=== PATIENT | female | born 1930 | race Caucasian/White ===

== ENCOUNTER 2019-10-18 10:23 | Observation (INO) | payer MEDICARE, BC ==
[~2019-10-18] VITALS: Ht 147.3 cm; Wt 56.3 kg
[~2019-10-18 10:23] MED LIST: AGGRENOX 200/251 CAP PO; AMBIEN10 MG PO; CALTRATE 600 PO; DIVALPROEX SOD250 MG PO; FLONASE NASAL50 MCG; LEVOTHYROXIN100 MCG PO; MAG CITRATE PO; MEDDOSEPAK PO; MIRALAX3350 N1 PO; OMEGA 31200 MG PO; OMEPRAZOLE20 MG PO; RESTASIS0.05 % OU; SIMVASTATIN40 MG PO
--- NOTE | 2019-10-18 10:54 | NUR ---
PATIENT AMBULATED TO ROOM WITH STEADY GAIT AND PHYSICIAN AT BEDSIDE FOR EVAL
--- NOTE | 2019-10-18 11:10 | NUR ---
PT SITTING UP ON STRETCHER; AOX3; PT STATES SHE WAS ASSISTING HER THIS AM WAS BENDING OVER THEN LOOKED UP AND SAID SHE SAT DOWN AND PASSED OUT FOR ABOUT 1 MIN; IV INITIATED TO LAC AND ORTHOSTATIC B/P COMPLETED; MONITORING DEVICES IN PLACE
[2019-10-18 11:22] LABS: HEMATOCRIT 39.6 % (37.0-47.0); HEMOGLOBIN 13.2 g/dl (12.0-16.0); IMMATURE GRANULOCYTES 1.2 % (0.0-5.0); MEAN CORPUSCULAR HGB 31.7 pG CALC (26.0-32.0); MEAN CORPUSCULAR HGB CONC 33.3 g/L CALC (32.0-36.0); NEUT# 3.16 thou/uL (2.00-7.15); RED BLOOD COUNT 4.17 mill/uL (4.20-5.60); RED CELL DISTRI WIDTH 12.1 % (11.5-15.5)
[2019-10-18 11:35] LABS: ANION GAP 18 (6-22 (CALC)); BILIRUBIN, TOTAL 0.5 mg/dL (0.0-1.4); BUN 18 mg/dL (8-23); BUN/CREATININE RATIO 17 (12-20 (CALC)); CARBON DIOXIDE 26 mmol/l (22-30); CHLORIDE 97 mmol/l (95-108); CREATININE 1.1 mg/dL (0.5-1.0); GFR 47 ML/MIN (>=60 (CALC)); GFR FOR AFR.AMER. 57 ML/MIN (>=60 (CALC)); SGOT/AST 28 u/l (9-36); SODIUM 137 mmol/l (137-146)
[2019-10-18 11:44] LABS: MYOGLOBIN 77 ng/mL (0 - 62)
[2019-10-18 11:45] LABS: ALBUMIN 5.2 g/dL (3.2-5.0); TOTAL PROTEIN 9.2 g/dL (6.3-8.2)
[2019-10-18 11:46] LABS: ALKALINE PHOSPHATASE 68 u/l (38-126)
[2019-10-18] MEDS ORDERED: NORVASC5 M1 PO (11:59)
[2019-10-18] MEDS ORDERED: CHLORPHEN SR12 MG (12:00)
[2019-10-18] MEDS ORDERED: ZOCOR20 M1 PO (12:01)
[2019-10-18] MEDS ORDERED: WOMENS MULTI VITAMIN (12:02)
[2019-10-18] MEDS ORDERED: NAIL-EX2.5 MG PO (12:02)
--- NOTE | 2019-10-18 12:05 | NUR ---
PT RESTING ON STRETCHER; SPOUSE AT BEDSIDE; VSS; PT DENIES ANY DIZZINESS OR PAIN AT THIS TIME; CALL LIGHT WITHIN REACH; WILL CONTINUE TO MONITOR
[2019-10-18 12:07] LABS: TSH, 3RD GENERATION 0.03 uIU/mL (0.47 - 4.68)
--- NOTE | 2019-10-18 12:50 | NUR ---
PT ASSISTED TO BR FOR URINE SPECIMEN; STEADY GAIT NOTED AT THIS TIME PT DENIES DIZZINESS OR FEELING LIGHTHEADED
[2019-10-18 13:22] LABS: URINE BILIRUBIN - DIPSTICK NEGATIVE (NEGATIVE); URINE BLOOD DIPSTICK NEGATIVE (NEGATIVE); URINE COLOR YELLOW; URINE GLUCOSE - DIPSTICK NEGATIVE (NEGATIVE); URINE KETONE 15 mg/dL (NEGATIVE); URINE NITRITE - DIPSTICK NEGATIVE (Negative); URINE PROTEIN - DIPSTICK NEGATIVE (NEG-TRACE); URINE UROBILINOGEN - DIPSTICK 0.2 E.U./dL (0.2)
[2019-10-18 13:27] LABS: URINE LEUK ESTERASE MODERATE (NEGATIVE)
[2019-10-18 13:29] LABS: URINE BACTERIA FEW hpf; URINE EPITHELIAL CELLS MODERATE EPI/hpf (0-FEW)
--- NOTE | 2019-10-18 13:43 | NUR ---
PT RESTING ON STRETCHER; INFORMED OF POC TO ADMIT; PT VERBALIZES UNDERSTANDING; MONITORING DEVICES IN PLACE; WILL CONTINUE TO MONITOR
--- NOTE | 2019-10-18 14:36 | NUR ---
PT SITTING UP ON STRETCHER; NO S/S OF DISTRESS NOTED; PT REQUESTING FOOD TRAY AT THIS TIME; VSS; CALL LIGHT WITHIN REACH; WILL CONTINUE TO MONITOR
--- NOTE | 2019-10-18 15:37 | NUR ---
PATIENT ARRIVED FROM ER VIA STRETCHER INTO ROOM 271. PLACED ON TELEMTRY BY DRUM SEALER AND ORIENTED TO SURROUNDINGS. CALL HALL IN REACH.
[2019-10-18 15:45] VITALS: BP 141/60
--- NOTE | 2019-10-18 16:00 | NUR ---
ADMISSION ASSESSMENT COMPLETED. VSS. RESP NON-LABORED. LUNGS CLEAR THROUGHOUT. NEURO ASSESSMENT NEGATIVE FOR DEFICITS. NO PERIPHERAL EDEMA, PERIPHERAL PULSES INTACT. SALINE LOCK IN LAC #20, SITE BENIGN. DISCUSSED PLAN OF CARE, EXPLAINED USE OF CALL HALL AND BED CONTROLS. REINFORCED CALLING FOR ASSISTANCE TO GET OOB AND EXPLAINED FALL PRECAUTIONS. PATIENT VERBALIZES UNDERSTANDING OF TEACHING. ASSISTED PATIENT TO BATHROOM, STABLE STANCE AND GAIT OBSERVED. TELEMTRY SHOWING SR.
--- NOTE | 2019-10-18 18:00 | NUR ---
RESITNG IN BED WITHOUT COMPLAINTS.
[2019-10-18 19:20] VITALS: BP 129/59
--- NOTE | 2019-10-18 19:20 | NUR ---
PT IN BED, NO S/O DISTRESS NOTED. PT WATCHING TV, DENIES AND NEEDS AT THIS TIME. CALL LIGHT AT SIDE.
--- NOTE | 2019-10-18 23:00 | NUR ---
PT AWAKE I ENTERED ROOM. TV AND LIGHTS OFF. PT C/O INABILITY TO SLEEP, COMFORT MEASURES OFFERED. NO SCRIPT FOR SLEEP AIDE AT THIS TIME. COMFORT MEASURES DENIED. CALL LIGHT IS AT BEDSIDE.
[2019-10-18 23:35] VITALS: BP 134/59
--- NOTE | 2019-10-19 04:15 | NUR ---
PT MEDICATED, IVF REPLENISHED AT THIS TIME. PT C/O INTERUPTIONS SO ATTEMPTS WERE MADE TO JOIN CARE TAKING TASKS TOGETHER. ASSISTED PT TO RESTROOM AND BACK TO BED. NO S/O DISTRESS NOTED AT THIS TIME. PT ENCOURAGED TO CALL NEEDS ARISE. CALL LIGHT NEXT TO PT.
[2019-10-19 05:36] VITALS: BP 146/68
[2019-10-19 05:44] LABS: HEMATOCRIT 34.8 % (37.0-47.0); HEMOGLOBIN 11.7 g/dl (12.0-16.0); IMMATURE GRANULOCYTES 0.4 % (0.0-5.0); MEAN CELL VOLUME 94.8 fL CALC (80.0-100.0); MEAN CORPUSCULAR HGB 31.9 pG CALC (26.0-32.0); MEAN CORPUSCULAR HGB CONC 33.6 g/L CALC (32.0-36.0); NEUT# 2.04 thou/uL (2.00-7.15); RED BLOOD COUNT 3.67 mill/uL (4.20-5.60); RED CELL DISTRI WIDTH 12.1 % (11.5-15.5)
[2019-10-19 06:11] LABS: ANION GAP 13 (6-22 (CALC)); BUN 16 mg/dL (8-23); BUN/CREATININE RATIO 23 (12-20 (CALC)); CARBON DIOXIDE 22 mmol/l (22-30); CHLORIDE 104 mmol/l (95-108); CREATININE 0.7 mg/dL (0.5-1.0); GFR > 60 ML/MIN (>=60 (CALC)); GFR FOR AFR.AMER. > 60 ML/MIN (>=60 (CALC)); MAGNESIUM 1.8 mg/dL (1.6-2.3); POTASSIUM 4.3 mmol/l (3.5-5.1); SODIUM 134 mmol/l (137-146)
[2019-10-19 07:40] VITALS: BP 142/68
--- NOTE | 2019-10-19 07:40 | NUR ---
AWAKE ON ROUNDS. VSS. RESP NON-LABORED. NEURO ASSESSMENT NEGATIVE FOR DEFICITS. IV IN LAC WITH 1/2 NS INFUSING AT 100 NL/HR, SITE BENIGN. MONITOR SR. SHIFT ASSESSMENT COMPLETED. DENIES NEEDS AT THIS TIME. CALL HALL IN REACH.
[2019-10-19 10:53] VITALS: BP 128/51
--- NOTE | 2019-10-19 11:30 | NUR ---
PATIENT HOME MED (AGGRENOX) BROUGHT TO PHARMACY FOR VERIFICATION.
--- NOTE | 2019-10-19 12:00 | NUR ---
PATIENT HAS BEEN UP IN CHAIR ALL MORNING, SHE HOPES TO GO HOME THIS AFTERNOON.
[2019-10-19] MEDS ORDERED: KEFLEX500 MG PO (16:16)
--- NOTE | 2019-10-19 17:40 | NUR ---
Discharge instructions given. Patient verbalizes understanding of same. Discharged in stable condition via Wheelchair to Home with spouse. All belongings sent with pt.
== END 2019-10-19 17:40 | disposition home or self-care (01) ==
LOC: ED 10:23 → ED-I 12:43 → ED 13:10 → MS2 13:11
PROVIDERS: Emergency Medicine; Nurse Practitioner Family; ADMIT Internal Medicine; ATTEND Internal Medicine
DX: R55 Syncope and collapse (principal); N30.90 Cystitis, unspecified without hematuria; I10 Essential (primary) hypertension; E03.9 Hypothyroidism, unspecified; Z86.73 Personal history of transient ischemic attack (TIA), and cerebral infarction without residual deficits
CPT/HCPCS: G0378